=== PATIENT | female | born 1940 | race Caucasian/White ===

== ENCOUNTER → 2017-01-05 | Day surgery (SDC) | payer MEDICARE ==
[~2017-01-05] MED LIST: LIDOCAINE 1%/EPINEPHRINE INJ 20 ML VIAL ONE
--- NOTE | 2017-01-07 11:49 | WOMENS IMAGING REPORT ---
EXAM DESCRIPTION: STEREO BREAST BX; LEFT DIG SCREEN MAMMO NO CHG COMPLETED DATE/TIME: 01/05/2017 1:21 pm REASON FOR STUDY: MICROCALCS (N63); MICROCALCS LEFT BREAST R92.0 MAMMOGRAPHIC MICROCALCIFICATION FO UND ON DX IMAGING OF N63 UNSPECIFIED LUMP IN BREAST * DO NOT USE * COMPARISON: Prior mammograms 09/17/2016, 09/09/2016 TECHNIQUE: Vacuum-assisted stereotactic-guided biopsy of the lesion in the left breast. Serial progr ess stereotactic and single digital images acquired. PROCEDURE: The procedure was discussed with the patient, including possible complications such as bleeding, infection, nondiagnostic sample or possible findings such as atypical ductal hyperplasia wh ich would require additional surgery. Possible clip placement was explained. The patient agreed t o the procedure. The patient was placed prone on the stereotactic table. The lesion in the breast was localized ster eotactically. The skin of the breast was prepped in sterile fashion. Superficial and deep local an esthesia was provided. A small incision was made in the skin and the biopsy probe was advanced to t he target. Using the vacuum-assisted core biopsy device, multiple core specimens were obtained. Continuous low dose infusion of local anesthesia was used during the procedure. A specimen radiograph was obtained. The radiograph demonstrated calcifications of concern in the bio psy tissue. Using [id number]-mt-kmedldht technique a pellet clip was deployed at the biopsy site. Mammographic image confirmed presence of the clip. The probe was then removed and hemostasis obtained with manua l compression. A compression bandage was applied. Postoperative instructions were explained to th e patient. POST-PROCEDURE TWO VIEW DIGITAL MAMMOGRAM: An additional two view mammogram was recorded in the [facility] mammographic suite. Marker clip is present at the biopsy site. LIMITATIONS: None. FINDINGS: PATHOLOGY: Fibroadenoma CONCORDANT: Yes. POST PROCEDURE MAMMOGRAMS FOR MARKER PLACEMENT: Yes IMPRESSION: SUCCESSFUL STEREOTACTIC-GUIDED BIOPSY OF THE LESION IN THE LEFT BREAST. BIOPSY RESULTS ARE CONCORDANT WITH IMAGING FINDINGS. BI-RADS 2 Benign findings. FOLLOW-UP: Please resume yearly bilateral screening mammography in August 2017. NOTIFICATION: Results were discussed with the patient, 01/07/2017, 0930 hours. She understands that the biopsy is benign, and that she can resume bilateral screening mammography in August 2017 COMMENT: Patient medication list reviewed: Yes- Quality ID# [id number]:Eligible professional attests to doc umenting in the medical record they obtained, updated, or reviewed the patient's current medications. TECHNICAL DOCUMENTATION: JOB ID: [id number] [employer]- All Rights Reserved
== END ==
LOC: RAD 09:58
PROVIDERS: ATTEND Surgery
PROC: 0HBT3ZX Excision of Right Breast, Percutaneous Approach, Diagnostic (ICD-10-PCS; principal; 2017-01-05)
DX: D24.2 Benign neoplasm of left breast (principal); R92.0 Mammographic microcalcification found on diagnostic imaging of breast
CPT/HCPCS: 88305 ×2; 19081; J3490

== ENCOUNTER 2017-02-16 07:14 | Day surgery (SDC) | payer MEDICARE ==
--- NOTE | 2017-02-05 12:34 | HISTORY AND PHYSICAL E ---
History and Physical NAME: GUSTAVO LAUREANO : 1940 AGE: 76Y ADMITTED: 02/16/2017 ROOM: HISTORY: The patient does have diverticulosis. She does have a history of anemia, admitted for colonoscopy. Review of record, colonoscopy 2011 showing anemia, diverticulosis severe, diminutive polyp in the rectum. Primary is Dr. Benitez. The patient presented at this time regarding colonoscopy. She did have upper scope 2008, showing gastritis. She did have negative cardiac workup, benign gastric polyp, esophagitis, gastritis, duodenitis. MEDICATIONS: 1. Aciphex. 2. Calcium. 3. Fish oil. 4. Thyroid. 5. Metformin. CT scan shows status post cholecystectomy, hysterectomy, calcification in the xiphoid. CT of the abdomen and the pelvis otherwise unremarkable. Gastric biopsy negative H. pylori. PHYSICAL EXAMINATION: GENERAL: Pleasant, alert and oriented, in no acute distress. VITAL SIGNS: Blood pressure 120/80, pulse 80, respirations 18, temperature is 98. HEAD, EYES, EARS, NOSE AND THROAT: Normal. ABDOMEN: Soft. NEUROLOGIC EXAM: Negative. The patient does have osteoarthritis, rheumatoid arthritis. CONCLUSION: 1. Diverticulosis. 2. Arthritis. 3. External hemorrhoids. 4. Tiny rectal polyps. 5. Sigmoid diverticulosis. PLAN: Colon exam. MEDICATIONS: 1. Lasix. 2. Singulair. 3. Dexilant. 4. Zetia. 5. Calcium. 6. Fish oil. 7. Benefiber. DICTATING PHYSICIAN: ZAY OVIEDO M.D. [id number] PHY#: [id number] ID: [id number] JOB#: [id number] ACCT: [id number] cc:ZAY OVIEDO M.D., RAJ >
[2017-02-16] MEDS ORDERED: ONDANSETRON HCL INJ/PF 4 MG/2 ML SDV ONE (07:44)
[2017-02-16] MEDS ORDERED: GLYCOPYRROLATE INJ 0.4 MG/2 ML VIAL ONE (07:45)
[2017-02-16] MEDS ORDERED: NALOXONE HCL INJ/PF 0.4 MG/1 ML SDV ONE (07:45)
[2017-02-16] MEDS ORDERED: FLUMAZENIL INJ 0.5 MG/5 ML VIAL ONE (07:46)
[2017-02-16] MEDS ORDERED: EPINEPHRINE INJ 1 MG/10 ML DISP.SYRIN ONE (07:46)
[2017-02-16] MEDS ORDERED: GLUCAGON,HUMAN RECOMB 1 MG INJ ONE (07:46)
[2017-02-16] MEDS: MIDAZOLAM 2 MG/2 ML INJ ONE ×3 (08:22→08:34)
[2017-02-16] MEDS: FENTANYL CITRATE INJ/PF 100 MCG/2 ML AMPUL ONE ×4 (08:24→08:38)
[2017-02-16 09:46] VITALS: BP 145/57
[2017-02-16 10:12] LABS: ABSOLUTE EOSINOPHILS # (AUTO) 0.1 10^3/uL (0.0-0.6); ABSOLUTE LYMPHOCYTES (AUTO) 1.1 10^3/uL (0.5-4.7); ABSOLUTE MONOCYTES (AUTO) 0.5 10^3/uL (0.1-1.4); BASOPHILS % (AUTO) 0.9 % (0-2); EOSINOPHILS % (AUTO) 3.9 % (0-6); HEMATOCRIT 37.1 % (36.0-47.0); HEMOGLOBIN 12.7 g/dL (12.0-15.5); LYMPHOCYTES % (AUTO) 28.1 % (13-45); MEAN CORPUSCULAR HEMOGLOBIN 31.2 pg (27.0-33.4); MEAN CORPUSCULAR HGB CONC 34.3 g/dL (32.0-36.0); MEAN CORPUSCULAR VOLUME 91 fl (80-97); MONOCYTES % (AUTO) 14.1 % (3-13); RED BLOOD COUNT 4.07 10^6/uL (3.72-5.28); WHITE BLOOD COUNT 3.8 10^3/uL (4.0-10.5)
[2017-02-16 10:33] LABS: IRON 101.1 ug/dL (37-170)
[2017-02-16 11:08] LABS: FERRITIN 51.3 ng/mL (11.1-264.0)
--- NOTE | 2017-02-16 13:55 | DISCHARGE SUMMARY E ---
Discharge Summary NAME: GUSTAVO LAUREANO : 1940 AGE: 76Y ADMITTED: 02/16/2017 DISCHARGED: 02/16/2017 HOSPITAL COURSE: The patient is a 76-year-old female known to have diverticulosis, presented with anemia. Today's colonoscopy shows no bleeding, mild external hemorrhoids, mild proctitis and sigmoid descending colon diverticulosis. DISCHARGE PLAN: Soft, low-residue diet for today. Awaiting lab studies. Followup office visit in the next few days. DICTATING PHYSICIAN: ZAY OVIEDO M.D. [id number] PHY#: [id number] ID: [id number] JOB#: [id number] ACCT: [id number] cc:ZAY OVIEDO M.D. >
--- NOTE | 2017-02-16 13:57 | OPERATIVE REPORT E ---
Operative Report NAME: GUSTAVO LAUREANO : 1940 AGE: 76Y DATE OF SURGERY: 02/16/2017 ROOM: PREOPERATIVE DIAGNOSES: 1. Anemia. 2. Diverticulosis. POSTOPERATIVE DIAGNOSES: 1. Diverticulosis sigmoid descending colon. 2. External hemorrhoids, mild. 3. Proctitis, mild. PROCEDURE: Colonoscopy. SURGEON: ZAY OVIEDO M.D. TISSUE REMOVED OR ALTERED: None. ANESTHESIA: Versed 4, fentanyl 100. DESCRIPTION: Adequate sedation obtained. Rectum exam: Mild external hemorrhoids. Mild proctitis. No polyps. Mild external hemorrhoids. No bleeding. Mild proctitis. Sigmoid diverticulosis. Descending colon diverticulosis. Brown stool transverse colon. Ascending colon brown stool. Cecum coated with brown stool with no evidence of bleeding, no polyps. Scope withdrawn from cecum, ascending, transverse, descending, sigmoid all the way to the rectum. CONCLUSION: Diverticulosis sigmoid descending colon. No polyps. No malignancy. PLAN: Will obtain serum B12 and CBC and serum iron and ferritin. Patient to see us in the office in the next few days. Consider followup colonoscopy 10 years. DICTATING PHYSICIAN: ZAY OVIEDO M.D. [id number] PHY#: [id number] ID: [id number] JOB#: [id number] ACCT: [id number] cc:SENAIT RAMON M.D., MAHMOUD M.D. >
== END 2017-02-16 09:52 | disposition home or self-care (01) ==
LOC: END 07:14
PROVIDERS: ATTEND Specialist
PROC: 0DJD8ZZ Inspection of Lower Intestinal Tract, Via Natural or Artificial Opening Endoscopic (ICD-10-PCS; principal; 2017-02-16 08:00)
DX: K57.30 Diverticulosis of large intestine without perforation or abscess without bleeding (principal); K64.4 Residual hemorrhoidal skin tags; K62.89 Other specified diseases of anus and rectum; D64.9 Anemia, unspecified; M19.90 Unspecified osteoarthritis, unspecified site; Z79.84 Long term (current) use of oral hypoglycemic drugs; Z79.899 Other long term (current) drug therapy
CPT/HCPCS: 45378; 36415; 82962; 82607; 82728; 83540; 85025; J2250; J3010; J1610; J2405; J0171; J2310; J3490

== ENCOUNTER → 2017-09-07 | Outpatient (CLI) | payer MEDICARE ==
--- NOTE | 2017-09-07 14:30 | RADIOLOGY REPORT (SQ) ---
EXAM DESCRIPTION: VENOUS UNILATERAL LOWER COMPLETED DATE/TIME: 09/07/2017 2:13 pm REASON FOR STUDY: LLE SWELLING/ CELLULITIS L03.116 CELLULITIS OF LEFT LOWER LIMB COMPARISON: None. TECHNIQUE: Dynamic and static huffman scale and color images acquired of the left leg venous system. Se lected spectral images acquired with additional compression and augmentation maneuvers. The contralat eral common femoral vein and saphenofemoral junction were also imaged. Images stored on PACS. LIMITATIONS: None. FINDINGS: COMMON FEMORAL: Normal phasicity, compression and augmentation. No visualized echogenic ma terial on huffman scale. No defects on color images. FEMORAL: Normal compression and augmentation. No visualized echogenic material on huffman scale. No defe cts on color images. POPLITEAL: Normal compression, augmentation. No visualized echogenic material on huffman scale. No defec ts on color images. CALF VESSELS: Normal compression, augmentation. No visualized echogenic material on huffman scale. No de fects on color images. GSV and SSV: Normal compression, augmentation. No visualized echogenic material on huffman scale. No def ects on color images. ANY DEEP VENOUS INSUFFICIENCY: Not evaluated. ANY EVIDENCE OF POPLITEAL CYST: No. OTHER: No other significant finding. CONTRALATERAL COMMON FEMORAL VEIN AND SAPHENOFEMORAL JUNCTION: Normal phasicity, compression and augmentation. No visualized echogenic material on huffman scale. No de fects on color images. IMPRESSION: NO EVIDENCE DVT OR SVT IN THE LEFT LEG. TECHNICAL DOCUMENTATION: JOB ID: [id number] [employer]- All Rights Reserved Reading location - IP/workstation name: [email or web address]
== END ==
LOC: SP 12:48
PROVIDERS: ATTEND Surgery
DX: L03.116 Cellulitis of left lower limb (principal)
CPT/HCPCS: 93971